=== PATIENT | female | born 1960 | race Caucasian/White ===

== ENCOUNTER 2018-05-22 07:25 | Outpatient (CLI) | payer OTHER ==
[2018-05-22] MEDS ORDERED: ISOVUE-370 76%-LOCM 1 ML ONE (10:36)
== END 2018-05-22 07:26 | disposition home or self-care (01) ==
LOC: BICCT 07:25
PROVIDERS: ATTEND Internal Medicine Rheumatology
DX: R20.2 Paresthesia of skin (principal); K35.80 Unspecified acute appendicitis; I77.810 Thoracic aortic ectasia; N20.0 Calculus of kidney; Z86.79 Personal history of other diseases of the circulatory system
CPT/HCPCS: 71275; 74175